=== PATIENT | female | born 1955 | race African-American/Black ===

== ENCOUNTER 2016-08-27 09:18 | Inpatient (IN) | payer SELFPAY ==
[~2016-08-27] VITALS: Ht 167.6 cm; Wt 49.9 kg
[2016-08-27] MEDS ORDERED: MAGNESIUM/ALUMINUM HYDROXIDE/SIMETHICONE 30ML UDC PO STA (11:43)
[2016-08-27] MEDS ORDERED: VISCOUS LIDOCAINE 2% 15 ML UDC PO STA (11:43)
[2016-08-27 12:08] LABS: BASOPHILS % 1.1 % (0.0-2.0); EOSINOPHILS % 0.8 % (0.0-5.0); HEMATOCRIT. 42.4 % (36.0-48.0); HEMOGLOBIN. 14.7 g/dL (12.0-16.0); LYMPHOCYTES % 41.9 % (20.0-50.0); MEAN CORPUSCULAR HEMOGLOBIN 33.8 pg (28.0-32.0); MEAN CORPUSCULAR VOLUME 97.8 fL (81.0-99.0); MEAN PLATELET VOLUME 8.3 fl (7.4-10.4); MONOCYTES % 6.3 % (2.0-8.0); NEUTROPHILS % 49.9 % (40.0-76.0); PLATELET 127 x1000/uL (130-400); RED BLOOD CELL COUNT 4.33 mill/uL (4.2-5.4); RED CELL DISTRIBUTION WIDTH 13.8 % (11.6-14.6)
[2016-08-27 12:25] LABS: CARBON DIOXIDE 33 mEq/L (21-32); CHLORIDE 107 mEq/L (98-107); TROPONIN I < 0.02 ng/mL (0.00-0.04)
[2016-08-27] MEDS ORDERED: ASPIRIN 325MG EC TABLET PO ONE (13:30)
[2016-08-27] MEDS ORDERED: HYDRALAZINE HCL 10MG TABLET PO ONE (13:30)
[2016-08-27] MEDS ORDERED: IPRATROPIUM/ALBUTEROL 0.5-3(2.5)MG/3ML NEB INH PRN (15:45)
[2016-08-27] MEDS ORDERED: CLONIDINE 0.1MG TABLET PO PRN (15:45)
[2016-08-27] MEDS ORDERED: KETOROLAC 15MG/ML VIAL IV PRN (15:45)
[2016-08-27] MEDS ORDERED: NA PHOS,M-B/NA PHOS,DI-BA ENEMA 118ML PR PRN (15:45)
[2016-08-27] MEDS ORDERED: NITROGLYCERIN 0.4MG TABLET SL SL PRN (15:45)
[2016-08-27] MEDS ORDERED: LORAZEPAM 2MG/ML CPJ IV PRN (15:45)
[2016-08-27] MEDS ORDERED: ONDANSETRON HCL 4MG/2ML VIAL IV PRN (15:45)
[2016-08-27] MEDS ORDERED: ACETAMINOPHEN 325MG TABLET PO PRN (15:45)
[2016-08-27] MEDS ORDERED: DOCUSATE SODIUM 100MG CAPSULE PO PRN (15:45)
[2016-08-27] MEDS ORDERED: ZOLPIDEM TARTRATE 5MG TABLET PO PRN (15:45)
[2016-08-27] MEDS ORDERED: DIPHENHYDRAMINE 50MG/ML VIAL IV PRN (15:45)
[2016-08-27] MEDS ORDERED: MAGNESIUM/ALUMINUM HYDROXIDE/SIMETHICONE 30ML UDC PO PRN (15:45)
[2016-08-27] MEDS ORDERED: GUAIFENESIN 200MG/10ML SUGAR FREE UDC PO PRN (15:45)
[2016-08-27] MEDS ORDERED: ASPI-986 PO (15:47)
[2016-08-27 16:00] VITALS: BP 154/95
[2016-08-27 16:07] VITALS: BP 154/95
[2016-08-27] MEDS ORDERED: ENOXAPARIN 40MG/0.4ML SYR SUBCUT SCH (17:00)
[2016-08-27] MEDS: SUCRALFATE 1 G/10 ML UDC PO SCH ×2 (17:52→21:00)
[2016-08-27 20:00] VITALS: BP 122/62
[2016-08-27] MEDS: METOPROLOL TARTRATE 25MG TABLET PO SCH (20:59)
[2016-08-27 21:47] LABS: *AMPHETAMINES SCREEN URINE NEGATIVE (NEGATIVE); *BARBITURATES SCREEN URINE NEGATIVE (NEGATIVE); *BENZODIAZEPINES SCREEN URINE NEGATIVE (NEGATIVE); *COCAINE SCREEN URINE NEGATIVE (NEGATIVE); CANNABINOID URINE SCREEN PRESUMTIVE POSITIVE (NEGATIVE); METHADONE URINE SCREEN NEGATIVE (NEGATIVE); OPIATES URINE SCREEN NEGATIVE (NEGATIVE); PHENCYCLIDINE URINE SCREEN NEGATIVE (NEGATIVE)
[2016-08-27 23:21] LABS: CREATINE KINASE MB FRACTION 1.3 ng/mL (0.5-3.6); TROPONIN I 0.03 ng/mL (0.00-0.04)
[2016-08-28] VITALS: BP 148/91
[2016-08-28 04:00] VITALS: BP 158/87
[2016-08-28 07:53] LABS: CREATINE KINASE MB FRACTION 1.2 ng/mL (0.5-3.6); TROPONIN I 0.02 ng/mL (0.00-0.04)
[2016-08-28 08:00] VITALS: BP 161/89
[2016-08-28] MEDS: METOPROLOL TARTRATE 25MG TABLET PO SCH (09:00)
[2016-08-28] MEDS ORDERED: ASPIRIN 325MG EC TABLET PO SCH (09:00)
[2016-08-28] MEDS ORDERED: PANTOPRAZOLE SODIUM 40 MG/VIAL IV SCH (09:00)
[2016-08-28] MEDS: SUCRALFATE 1 G/10 ML UDC PO SCH ×2 (09:14→12:40)
[2016-08-28 09:51] VITALS: BP 143/67
[2016-08-28 11:59] VITALS: BP 125/76
[2016-08-28 12:29] VITALS: BP 125/76
== END 2016-08-28 13:10 | disposition home or self-care (01) | DRG 243 ==
LOC: ER 10:51 → 7WST 13:27 → ENRESERV 13:35
PROVIDERS: ADMIT Internal Medicine; ATTEND Internal Medicine
DX: K21.9 Gastro-esophageal reflux disease without esophagitis (principal); I10 Essential (primary) hypertension; E78.00 Pure hypercholesterolemia, unspecified; F41.0 Panic disorder [episodic paroxysmal anxiety]; F12.10 Cannabis abuse, uncomplicated; G47.00 Insomnia, unspecified; Z90.710 Acquired absence of both cervix and uterus; Z86.73 Personal history of transient ischemic attack (TIA), and cerebral infarction without residual deficits; I25.2 Old myocardial infarction; Z79.82 Long term (current) use of aspirin; Z71.51 Drug abuse counseling and surveillance of drug abuser
CPT/HCPCS: 36415; 71010; 80053; 80061; 80305; 82550; 82553; 83036; 83690; 83880; 84484; 85025; 93005; 99285; C9113; J1650